=== PATIENT | male | born 1955 | race Caucasian/White ===

== ENCOUNTER → 2023-04-15 16:12 | Outpatient (CLI) | payer MEDICARE, OTHER, SELFPAY ==
--- NOTE | ~2023-04-15 | XR_ITS ---
EXAMINATION: XR thoracic spine min 4V DATE: 04/15/2023 16:51 INDICATION: thoracic and right rib pain TECHNIQUE: 1. 6 views of the thoracic spine including AP views of the thoracic and thoracolumbar regions and lat eral views extending from the cervical through the upper lumbar spine were obtained. 2. 3 views of the right ribs were obtained. COMPARISON: None. FINDINGS: Thoracic spine: 14 degree thoracic levoscoliosis measured between T2 and T9 with 9 degrees compensatory dextrocurvatu re between T9 and T12. Mild reversal of the normal cervical lordosis. Mild lower thoracic kyphosis. 3 04 mm retrolisthesis on L2 and 2 mm retrolisthesis L2 on L3. Vertebral body heights are normal. Moder ate disc height loss at C3-C4, C4-C5, mild disc height loss at C5-C6. Moderate disc height loss from T6-T7 through L2-L3 and at L4-L5 and mild disc height loss at L3-L4 and the remaining thoracic levels . Right ribs: Relatively recent-appearing fractures of the posterolateral right third-ninth ribs, several of which are displaced. Small right pleural effusion with mild linear atelectasis at the right lung base. No p neumothorax. IMPRESSION: 1. Multiple recent-appearing right third-ninth rib fractures likely secondary small right pleural eff usion and mild right basilar atelectasis. 2. Mild S-shaped scoliosis of the thoracic spine with moderate cervical, thoracic and lumbar spondylo sis. Reviewed, dictated and finalized at location A. IMPRESSION: 1. Multiple recent-appearing right third-ninth rib fractures likely secondary s mall right pleural effusion and mild right basilar atelectasis. 2. Mild S-shaped scoliosis of the thoracic spine with moderate cervical, thorac ic and lumbar spondylosis.
== END ==
PROVIDERS: PCP Emergency Medicine; Visit Provider Emergency Medicine
DX: S22.41XA Multiple fractures of ribs, right side, initial encounter for closed fracture (principal); X58.XXXA Exposure to other specified factors, initial encounter; M41.9 Scoliosis, unspecified
CPT/HCPCS: 71100; 72074